=== PATIENT | female | born 1985 | race American Indian/Alaskan Native ===

== ENCOUNTER 2021-01-27 14:21 | Emergency (ER) | payer MEDICARE ==
[2021-01-27 14:25] VITALS: BP 123/78
--- NOTE | 2021-01-27 14:49 | Emergency Department Report ---
ED Female HPI - General Chief complaint: Urogenital-Female Stated complaint: CHECK TUBAL LIGATION/AIDS TEST Time Seen by Provider: 01/27/21 14:35 Source: patient Mode of arrival: Ambulatory Limitations: No Limitations - History of Present Illness Initial comments: 35 year old female presents to ED with concern about her tubal ligation and vag discharge. Patient states that when she sat down yesterday and heard a "poping" noise coming her vagina and because concerned that it could be her tubal ligation "coming undone". She states she thinks she had a tubal ligation several yrs ago but she is not sure. She denies any vaginal pain or pelvic pain. She does admit that she has been having a white vaginal discharge recently. She reports new sexual partner who she was sexually active with about 3 weeks ago and was unprotected. She is currently on her menstrual cycle. She is G7, P5 Ab2. Complaint: vaginal discharge, other (concerned about her tubal ligation) -: days(s) - Related Data Previous Rx's Medication Instructions Recorded Last Taken Type metroNIDAZOLE [Flagyl] 500 mg PO Q12HR #14 tab 01/27/21 Unknown Rx Allergies Allergy/AdvReac Type Severity Reaction Status Date / Time No Known Allergies Allergy Verified 01/27/21 14:29 ED Review of Systems ROS: Stated complaint: CHECK TUBAL LIGATION/AIDS TEST Other details as noted in HPI Comment: All other systems reviewed and negative Constitutional: denies: chills, fever Eyes: denies: eye pain, eye discharge, vision change ENT: denies: ear pain, throat pain Respiratory: denies: cough, shortness of breath, wheezing Cardiovascular: denies: chest pain, palpitations, dyspnea on exertion, edema, syncope, paroxysmal nocturnal dyspnea Gastrointestinal: denies: abdominal pain, nausea, diarrhea, constipation, hematemesis, hematochezia Genitourinary: discharge. denies: urgency, frequency, hematuria, abnormal menses, dyspareunia Musculoskeletal: denies: back pain, joint swelling, arthralgia Skin: denies: rash, lesions, change in color, change in hair/nails, pruritus Neurological: denies: headache, weakness, numbness, paresthesias, confusion, abnormal gait, vertigo Psychiatric: denies: anxiety, depression, auditory hallucinations, visual hallucinations, homicidal thoughts, suicidal thoughts Hematological/Lymphatic: denies: easy bleeding, easy bruising ED Past Medical Hx - Medications Home Medications: Home Medications Medication Instructions Recorded Confirmed Last Taken Type metroNIDAZOLE [Flagyl] 500 mg PO Q12HR #14 tab 01/27/21 Unknown Rx ED Physical Exam - General Limitations: No Limitations General appearance: alert, in no apparent distress - Head Head exam: Present: atraumatic, normocephalic, normal inspection - Eye Eye exam: Present: normal appearance, PERRL, EOMI Pupils: Present: normal accommodation - Neck Neck exam: Present: normal inspection, full ROM - Respiratory Respiratory exam: Present: normal lung sounds bilaterally. Absent: respiratory distress, wheezes, rales, rhonchi - Cardiovascular Cardiovascular Exam: Present: regular rate, normal rhythm, normal heart sounds - GI/Abdominal GI/Abdominal exam: Present: soft. Absent: distended, tenderness, guarding, rebound - External exam: Present: normal external exam Speculum exam: Present: vaginal discharge (small amt of vag discharge). Absent: cervical discharge, vaginal bleeding, foreign body, tissue, laceration Bi-manual exam: Present: normal bi-manual exam - Neurological Exam Neurological exam: Present: alert, oriented X3, CN II-XII intact, normal gait - Psychiatric Psychiatric exam: Present: normal affect, normal mood - Skin Skin exam: Present: intact ED Course Vital Signs 01/27/21 14:23 Temperature 98.4 F Pulse Rate 70 Respiratory 16 Rate Blood Pressure 123/78 [Right] O2 Sat by Pulse 99 Oximetry ED Medical Decision Making - Medical Decision Making Wet prep + BV. UA negative UTI. HCG negative. Pelvic exam unremarkable. Discussed results with patient. She declined prophylactic treatment for gonorrhea and chlamydia. She will be given prescription for Flagyl for her BV, and given referral to local [facility] for further evaluation of her tubal ligation and for additional testing such as HIV. Patient currently is not toxic or ill- appearing and not in any significant distress. Patient expressed understanding and agreed with plan. PAtient was stable at time of d/c/. Critical care attestation.: If time is entered above; I have spent that time in minutes in the direct care of this critically ill patient, excluding procedure time. ED Disposition Clinical Impression: Bacterial vaginosis Disposition: HOME / SELF CARE / HOMELESS Is pt being admited?: No Does the pt Need Aspirin: No Condition: Stable Instructions: Bacterial Vaginosis, [id number], Bacterial Vaginosis (ED) Additional Instructions: I recommend that you take the flagyl as prescribed. Do not drink alcohol while taking the flagyl. Take it with food. I recommend following up with OBGYN with concerns about your tubal ligation and also for additional STD testing like HIV. Return to ED if anything changes or worsens. Prescriptions: metroNIDAZOLE [Flagyl] 500 mg PO Q12HR #14 tab Referrals: [facility] [Provider Group] - 3-5 Days [facility] [Provider Group] - 3-5 Days [facility] [Provider Group] - 3-5 Days Forms: STI Treatment and Prevention Time of Disposition: 15:43 Print Language: [id number]
[2021-01-27 15:13] LABS: Bilirubin,Urine NEG (Negative); Blood,Urine MOD (Negative); Color,Urine Yellow (Yellow); Mucus,Urine 1+ /HPF; Protein,Urine <15 mg/dL mg/dL (Negative)
[2021-01-27 15:15] LABS: HCG Qualitative,Urine Negative (Negative)
== END 2021-01-27 15:49 | disposition home or self-care (01) ==
LOC: ED 14:21
DX: N76.0 Acute vaginitis (principal); B96.89 Other specified bacterial agents as the cause of diseases classified elsewhere
CPT/HCPCS: 81001; 81025; 87210; 99284